=== PATIENT | female | born 1995 | race Two or more races ===

== ENCOUNTER 2018-08-07 14:53 | Emergency (ER) | payer OTHER ==
[~2018-08-07] VITALS: Ht 160 cm; Wt 91.2 kg
[2018-08-07] MEDS ORDERED: OBSTETRIX DHA1 EACH (15:24)
== END 2018-08-07 18:13 | disposition home or self-care (01) ==
LOC: ER 14:53
DX: J06.9 Acute upper respiratory infection, unspecified (principal)